=== PATIENT | female | born 1990 | race Caucasian/White ===

== ENCOUNTER → 2016-08-14 | Outpatient (CLI) | payer OTHER ==
[~2016-08-14] MED LIST: IBUPRO PO
[2016-08-14 09:47] LABS: THYROID STIMULATING HORMONE 1.16 uIu/ml (0.300-4.500)
== END | disposition home or self-care (01) ==
LOC: C.LAB 07:32
PROVIDERS: ATTEND Internal Medicine Endocrinology, Diabetes & Metabolism
DX: E03.8 Other specified hypothyroidism (principal); E06.3 Autoimmune thyroiditis

== ENCOUNTER → 2016-10-01 | Outpatient (CLI) | payer OTHER ==
[2016-10-01 09:45] LABS: BLOOD UREA NITROGEN 18 mg/dl (7-18); BUN/CREATININE RATIO 24.5 (10-20); CALCIUM 8.9 mg/dl (8.5-10.1); CARBON DIOXIDE 27 mmol/L (21-32); CHLORIDE 108 mmol/L (98-107); CREATININE 0.72 mg/dl (0.60-1.20); GLUCOSE 100 mg/dl (70-99); MAGNESIUM 2.2 mg/dl (1.8-2.4); POTASSIUM 4.1 mmol/L (3.5-5.1); SODIUM 141 mmol/L (136-145)
[2016-10-01 09:56] LABS: THYROID STIMULATING HORMONE 0.953 uIu/ml (0.300-4.500)
== END | disposition home or self-care (01) ==
LOC: C.LAB 07:43
PROVIDERS: ATTEND Internal Medicine Endocrinology, Diabetes & Metabolism
DX: E03.9 Hypothyroidism, unspecified (principal); E55.9 Vitamin D deficiency, unspecified; R53.81 Other malaise; R53.83 Other fatigue

== ENCOUNTER → 2017-01-17 | Outpatient (CLI) | payer OTHER | END | disposition home or self-care (01) | LOC: C.LAB 06:36 | PROVIDERS: ATTEND Internal Medicine Endocrinology, Diabetes & Metabolism | DX: E03.8 Other specified hypothyroidism (principal); E06.3 Autoimmune thyroiditis ==

== ENCOUNTER → 2017-04-17 | Outpatient (CLI) | payer OTHER | END | disposition home or self-care (01) | LOC: C.LAB 08:50 | PROVIDERS: ATTEND Physician Assistant | DX: E03.8 Other specified hypothyroidism (principal); E06.3 Autoimmune thyroiditis ==

== ENCOUNTER → 2017-06-05 | Outpatient (CLI) | payer OTHER ==
[2017-06-05 10:11] LABS: BASO % 0.7 %; BASO ABS # 0.03 K/uL (0-0.2); COMPLETE YES; EOS % 2.5 %; HEMATOCRIT 44.8 % (37-47); IG% 0.2 %; LYMPH % 39.3 %; LYMPH ABS # 1.73 K/uL (1.2-3.4); MEAN CELL VOLUME 90.7 fL (80-100); MEAN CORPUSCULAR HEMOGLOBIN 31.4 pg (25-34); MEAN CORPUSCULAR HGB CONC 34.6 g/dl (32-36); MEAN PLATELET VOLUME 10.4 fL (7.4-10.4); MONO % 7.7 %; NEUT % 49.6 %; PLATELET COUNT 179 K/uL (130-400); RED BLOOD COUNT 4.94 M/uL (4.2-5.4)
[2017-06-05 11:00] LABS: FERRITIN 24.6 ng/ml (8.0-388.0); THYROID STIMULATING HORMONE 0.135 uIu/ml (0.300-4.500)
== END | disposition home or self-care (01) ==
LOC: C.LAB 09:20
PROVIDERS: ATTEND Student in an Organized Health Care Education/Training Program
DX: E03.8 Other specified hypothyroidism (principal); E06.3 Autoimmune thyroiditis; Z86.39 Personal history of other endocrine, nutritional and metabolic disease

== ENCOUNTER → 2017-10-17 | Outpatient (CLI) | payer OTHER | END | disposition home or self-care (01) | LOC: C.LAB 08:25 | PROVIDERS: ATTEND Student in an Organized Health Care Education/Training Program | DX: E03.8 Other specified hypothyroidism (principal); E06.3 Autoimmune thyroiditis ==

== ENCOUNTER 2021-05-14 02:19 | Inpatient (IN) ==
[2021-05-14] MEDS ORDERED: miSOPROStoL 25 MCG TAB SL ONE (03:15)
[2021-05-14] MEDS ORDERED: OXYTOCIN 30 UNITS/500 ML BAG IV PRN ×2 (03:15→09:43)
--- NOTE | 2021-05-14 03:24 | History & Physical Report ---
Date of Service May 14, 2021 Assessment & Plan (1) 40 weeks gestation of : Plan: Admit, routine labs Start Cytotec 25 mcg sublingually every 4 hours to help with cervical ripening, epidural when patient requests, and then will start oxytocin when patient has made cervical change. 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 Was a sudden gush, has continued to leak fluid since. Clear. Denies regular painful contractions, is having some cramping, denies bleeding, baby moving well. Denies headache, blurry vision, right upper quadrant epigastric pain. States she is feeling somewhat nauseous. No other complaints at this time Start care with Seema at 8 weeks gestation. Followed by endocrinology at [facility] for her Mic's. After patient delivers plan per endocrinology is Start Tirosint 88mcg + cytomel 2.5mcg twice daily Allergies Allergy/AdvReac Type Severity Reaction Status Date / Time Penicillins Allergy Unknown Rash Verified 05/14/21 02:39 Home Medications Medication Instructions Recorded Confirmed Type levothyroxine 112 mcg capsule 112 mcg PO DAILY 05/14/21 05/14/21 History (Tirosint) vit no.95-ferrous 1 tab PO DAILY 05/14/21 05/14/21 History fumarate 28 mg-folic acid 800 mcg tablet () Past Med/Surg History Medical History (Updated 05/14/21 @ 03:36 by Rayna Vallejo MD, PhD) Mic's disease 2013 Surgical History H/O knee surgery right knee multiple surgeries [place] teeth removed 2007 Social History Smoking Status: Never smoker Second Hand Exposure: No; Hx Alcohol Use: No Hx Substance Use: No Preferred Language: Belgian Communication Ability: Effective Sccm Administrator Required: No Beliefs That Will Affect Care: None marital status: Current Living Situation: Spouse Other Information That Helps Us Care for You: No Feels Safe at Home: Yes Safety Concerns: Feels Safe At This Time Assistive Devices: Glasses Review of Systems Review of Systems: All systems reviewed & are unremarkable except as noted in HPI & below Physical Exam Constitutional: WD/WN, vitals as above Respiratory: normal respiratory effort, lungs clear to auscultation Cardiovascular: RRR, no murmur, no edema Gastrointestinal (Abdomen): normal bowel sounds, soft, nontender, no hepatosplenomegaly Gravid, Chris's 8 pounds 3 ounces Genitourinary: heart tracing: Baseline 130, moderate variability, positive accelerations, 1 variable decelerations, category 1 tracing Tocometer: Irregular contractions Cervix: 0.5/50/-3 checked by RN Results & Data Results & Data ([facility]) Vital Signs (Past 12 Hours) Vital Signs Temp Pulse Resp BP 05/14/21 03:02 37.0 C 92 H 18 119/82 05/14/21 02:45 37.0 C 88 18 144/91 H 05/14/21 02:33 88 144/91 H Code Status & VTE Plan VTE Prophylaxis Plan VTE Prophylaxis will be ordered: No
[2021-05-14 03:52] LABS: Hematocrit (blood only) 34.5 % (37-47); Hemoglobin 11.3 g/dL (12.0-16.0); Mean Corpuscular Hemoglobin 28.8 pg (25-34); Mean Corpuscular Hgb Conc 32.8 g/dL (32-36); Mean Corpuscular Volume 87.8 fL (80-100); Mean Platelet Volume 11.3 fL (7.4-10.4); Platelet Count 215 K/uL (130-400); RDW Coefficient of Variation 13.1 % (11.5-14.5); RDW Standard Deviation 42.6 fL (36.4-46.3); Red Blood Count 3.93 M/uL (4.2-5.4); White Blood Count 8.76 K/uL (4.8-10.8)
[2021-05-14] MEDS ORDERED: LEVOTHYROXINE SODIUM 112 MCG TABLET PO SCH (06:30)
--- NOTE | 2021-05-14 07:06 | Anesthesiology Consultation ---
Date of Service May 14, 2021 Assessment & Plan (1) Encounter for pre-operative examination: Chart Review Chart Review: Patient NOT seen in Pre Admission Testing and Acceptable Risk for Labor Epidural Consults Requested none History Height/Weight Height: 5 ft 3 in Weight: 91.626 kg Allergies Allergy/AdvReac Type Severity Reaction Status Date / Time Penicillins Allergy Unknown Rash Verified 05/14/21 02:39 gluten Allergy Gastrointestinal Verified 05/14/21 03:42 Upset Medications Home Medications Medication Instructions Recorded Confirmed Last Taken levothyroxine 112 mcg capsule 112 mcg PO DAILY 05/14/21 05/14/21 05/13/21 22:00 (Tirosint) vit no.95-ferrous 1 tab PO DAILY 05/14/21 05/14/21 05/13/21 09:00 fumarate 28 mg-folic acid 800 mcg tablet () Active Medications Generic Name Dose Route Start Last Admin Trade Name Freq PRN Reason Stop Dose Admin Levothyroxine Sodium 112 mcg 05/14/21 06:30 05/14/21 06:51 Levothyroxine Sodium 112 Mcg Tablet PO 06/13/21 06:29 Not Given DAILYBB [facility] Past Medical History Medical History Mic's disease 2014 Past Surgical History Surgical History H/O knee surgery right knee multiple surgeries [place] teeth removed 2007 Social History Smoking Status: Never smoker Hx Alcohol Use: No Hx Substance Use: No substance use type: does not use Physical Exam Vital Signs Last Vital Signs Temp 98.1 F 05/14/21 05:00 Pulse 92 H 05/14/21 03:02 Resp 18 05/14/21 05:00 BP 119/82 05/14/21 03:02 Testing Laboratory Results 05/14/21 03:36 Blood Type O Positive 05/14/21 03:36 Antibody Screen NEGATIVE 05/14/21 03:36
[2021-05-14] MEDS ORDERED: ONDANSETRON 4 MG OD TAB PO STA (07:43)
[2021-05-14] MEDS ORDERED: ONDANSETRON INJ 2 MG/ML 2 ML VIAL ONE ×2 (07:45→16:26)
[2021-05-14] MEDS: LACTATED RINGER'S 1,000 ML IV PRN ×3 (08:01→14:08)
[2021-05-14] MEDS ORDERED: SODIUM CHLORIDE 0.9% INJ 10 ML VIAL ONE (08:03)
[2021-05-14] MEDS ORDERED: BUPIVACAINE 0.25% 30 ML VIAL ONE (08:03)
[2021-05-14] MEDS ORDERED: ePHEDrine sulfate 50 MG/ML AMP ONE (08:03)
[2021-05-14] MEDS ORDERED: fentaNYL citrate 100 MCG/2 ML VIAL ONE (08:04)
[2021-05-14] MEDS ORDERED: fentaNYL 2MCG/ML ROPIVACAINE 1.25MG/ML 100 ML BAG EPI ONE (08:04)
[2021-05-14] MEDS ORDERED: diphenhydrAMINE 50 MG/ML VIAL IV PRN ×3 (08:07→17:00)
[2021-05-14] MEDS ORDERED: ePHEDrine sulfate 50 MG/ML AMP IV PRN ×2 (08:07→17:00)
[2021-05-14] MEDS ORDERED: NALOXONE HCL 0.4 MG/1 ML VIAL/CARP IV PRN ×2 (08:07→17:00)
[2021-05-14] MEDS ORDERED: NALBUPHINE HCL INJ 10 MG/ML AMP IV PRN ×2 (08:07→17:00)
[2021-05-14] MEDS ORDERED: fentaNYL 2MCG/ML ROPIVACAINE 1.25MG/ML 100 ML BAG EPI PRN (08:07)
[2021-05-14] MEDS ORDERED: NALOXONE HCL 1 MG in SODIUM CHLORIDE 0.9% 1000ML 1,000 ML IV PRN ×2 (08:07→17:00)
--- NOTE | 2021-05-14 10:28 | Labor Progress Brief Note ---
Date of Service May 14, 2021 Subjective Patient comfortable on epidural at this time, no complaints Assessment & Plan (1) 40 weeks gestation of : Plan: Patient changed to 3 cm dilated after her first dose of Cytotec. We will start oxytocin at this time for augmentation. 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, and transition to Tirosint 88mcg + cytomel 2.5mcg twice daily per [facility] [place] Admission and Anticipated Discharge Date Admission Date: May 14, 2021 Physical Exam Constitutional: WD/WN, vitals as above Respiratory: normal respiratory effort, lungs clear to auscultation Cardiovascular: RRR, no murmur, no edema Gastrointestinal (Abdomen): normal bowel sounds, soft, nontender, no hepatosplenomegaly Genitourinary: heart tracing: Baseline 130, moderate variability, positive accelerations no decelerations, category 1 tracing Tocometer: Contractions every 6 to 8 minutes Cervix: 3/90/-2 IUPC was placed, will start oxytocin to an increase in increments of 2 Results & Data ([place]) Vital Signs (Past 12 Hours) Vital Signs Temp Pulse Resp BP Pulse Ox 05/14/21 10:24 115 H 98 05/14/21 10:20 84 116/68 05/14/21 10:19 83 97 05/14/21 10:14 80 96 05/14/21 10:09 97 H 97 05/14/21 10:05 96 H 137/87 05/14/21 10:04 95 H 98 05/14/21 09:59 89 98 05/14/21 09:54 84 99 05/14/21 09:50 84 108/71 05/14/21 09:49 84 99 05/14/21 09:44 84 99 05/14/21 09:39 80 99 05/14/21 09:35 73 18 109/70 05/14/21 09:34 87 100 05/14/21 09:29 79 100 05/14/21 09:24 76 100 05/14/21 09:20 77 18 109/70 05/14/21 09:19 81 100 05/14/21 09:14 80 99 05/14/21 09:09 85 100 05/14/21 09:05 84 20 128/71 05/14/21 09:04 87 100 05/14/21 08:59 80 110/72 99 05/14/21 08:55 83 129/76 05/14/21 08:54 90 99 05/14/21 08:49 78 18 130/80 100 05/14/21 08:44 83 18 145/95 H 97 05/14/21 08:42 86 18 139/91 05/14/21 08:40 104 H 18 156/91 H 05/14/21 08:39 101 H 96 05/14/21 08:38 85 18 137/88 05/14/21 08:36 103 H 18 139/98 05/14/21 08:34 86 18 142/96 H 97 05/14/21 08:32 88 18 142/95 H 05/14/21 08:30 36.6 C 89 16 143/95 H 93 05/14/21 08:29 90 96 05/14/21 08:28 85 130/86 05/14/21 08:26 108 H 122/82 05/14/21 08:24 98 H 126/82 97 05/14/21 08:22 94 H 129/89 05/14/21 08:20 107 H 91 05/14/21 08:19 94 H 97 05/14/21 08:17 106 H 18 117/80 05/14/21 08:14 101 H 97 05/14/21 07:28 104 H 135/73 05/14/21 07:20 36.7 C 18 05/14/21 05:00 36.7 C 18 05/14/21 03:02 37.0 C 92 H 18 119/82 05/14/21 02:45 37.0 C 88 18 144/91 H 05/14/21 02:33 88 144/91 H
--- NOTE | 2021-05-14 13:58 | Labor Progress Brief Note ---
Date of Service May 14, 2021 Subjective Patient comfortable on epidural at this time, no complaints Assessment & Plan (1) 40 weeks gestation of : Plan: Continue oxytocin for augmentation. Anticipate spontaneous vaginal delivery (2) Class II obesity: (3) SROM (spontaneous rupture of membranes): Plan: GBS negative, no indication for antibiotics at this time, see above plan (4) Mic's disease: Plan: Continue 112 mcg daily, and transition to Tirosint 88mcg + cytomel 2.5mcg twice daily per [facility] endocrinology Admission and Anticipated Discharge Date Admission Date: May 14, 2021 Physical Exam Genitourinary: heart tracing: Baseline 130, moderate variability, early decelerations present Tocometer: Contractions every 3 to 4 minutes, Pit currently running Cervix: 9/100/0 FSE was placed Results & Data ([facility]) Vital Signs (Past 12 Hours) Vital Signs Temp Pulse Resp BP Pulse Ox 05/14/21 13:54 104 H 97 05/14/21 13:50 93 H 110/58 L 05/14/21 13:49 95 H 94 05/14/21 13:44 97 H 95 05/14/21 13:41 94 H 94 05/14/21 13:39 102 H 95 05/14/21 13:35 100 H 115/56 L 05/14/21 13:34 103 H 95 05/14/21 13:29 102 H 96 05/14/21 13:24 85 93 05/14/21 13:21 94 H 126/80 94 05/14/21 13:19 102 H 95 05/14/21 13:16 88 94 05/14/21 13:14 88 94 05/14/21 13:09 90 94 05/14/21 13:08 109 H 94 05/14/21 13:06 91 H 127/80 05/14/21 13:04 94 H 93 05/14/21 13:01 86 94 05/14/21 12:59 85 92 05/14/21 12:56 88 93 05/14/21 12:54 91 H 95 05/14/21 12:51 90 122/78 05/14/21 12:50 86 93 05/14/21 12:49 108 H 95 05/14/21 12:45 83 94 05/14/21 12:44 85 95 05/14/21 12:39 93 H 139/85 95 05/14/21 12:38 36.5 C 91 H 18 94 05/14/21 12:34 90 95 05/14/21 12:29 102 H 94 05/14/21 12:24 94 H 94 05/14/21 12:21 92 H 132/85 94 05/14/21 12:19 95 H 96 05/14/21 12:15 90 94 05/14/21 12:14 100 H 96 05/14/21 12:09 106 H 96 05/14/21 12:07 91 H 133/89 94 05/14/21 12:04 98 H 96 05/14/21 12:00 96 H 94 05/14/21 11:59 107 H 96 05/14/21 11:54 111 H 97 05/14/21 11:51 89 94 05/14/21 11:50 90 101/58 L 05/14/21 11:49 95 H 92 05/14/21 11:44 95 H 93 05/14/21 11:42 95 H 94 05/14/21 11:39 91 H 94 05/14/21 11:36 97 H 94 05/14/21 11:35 92 H 97/60 L 05/14/21 11:34 90 95 05/14/21 11:31 107 H 94 05/14/21 11:29 88 95 05/14/21 11:24 92 H 97 05/14/21 11:20 83 102/63 05/14/21 11:19 88 97 05/14/21 11:14 98 H 97 05/14/21 11:10 94 H 94 05/14/21 11:09 93 H 95 05/14/21 11:06 93 H 18 109/59 L 05/14/21 11:04 91 H 96 05/14/21 11:01 92 H 94 05/14/21 10:59 96 H 97 05/14/21 10:54 97 H 96 05/14/21 10:51 96 H 115/77 05/14/21 10:49 95 H 96 05/14/21 10:44 92 H 96 05/14/21 10:39 99 H 96 05/14/21 10:36 36.6 C 103 H 20 122/64 05/14/21 10:34 100 H 97 05/14/21 10:29 96 H 97 05/14/21 10:24 115 H 98 05/14/21 10:20 84 116/68 05/14/21 10:19 83 97 05/14/21 10:14 80 96 05/14/21 10:09 97 H 97 05/14/21 10:05 96 H 137/87 05/14/21 10:04 95 H 98 05/14/21 09:59 89 98 05/14/21 09:54 84 99 05/14/21 09:50 84 108/71 05/14/21 09:49 84 99 05/14/21 09:44 84 99 05/14/21 09:39 80 99 05/14/21 09:35 73 18 109/70 05/14/21 09:34 87 100 05/14/21 09:29 79 100 05/14/21 09:24 76 100 05/14/21 09:20 77 18 109/70 05/14/21 09:19 81 100 05/14/21 09:14 80 99 05/14/21 09:09 85 100 05/14/21 09:05 84 20 128/71 05/14/21 09:04 87 100 05/14/21 08:59 80 110/72 99 05/14/21 08:55 83 129/76 05/14/21 08:54 90 99 05/14/21 08:49 78 18 130/80 100 05/14/21 08:44 83 18 145/95 H 97 05/14/21 08:42 86 18 139/91 05/14/21 08:40 104 H 18 156/91 H 05/14/21 08:39 101 H 96 05/14/21 08:38 85 18 137/88 05/14/21 08:36 103 H 18 139/98 05/14/21 08:34 86 18 142/96 H 97 05/14/21 08:32 88 18 142/95 H 05/14/21 08:30 36.6 C 89 16 143/95 H 93 05/14/21 08:29 90 96 05/14/21 08:28 85 130/86 05/14/21 08:26 108 H 122/82 05/14/21 08:24 98 H 126/82 97 05/14/21 08:22 94 H 129/89 05/14/21 08:20 107 H 91 05/14/21 08:19 94 H 97 05/14/21 08:17 106 H 18 117/80 05/14/21 08:14 101 H 97 05/14/21 07:28 104 H 135/73 05/14/21 07:20 36.7 C 18 05/14/21 05:00 36.7 C 18 05/14/21 03:02 37.0 C 92 H 18 119/82 05/14/21 02:45 37.0 C 88 18 144/91 H 05/14/21 02:33 88 144/91 H
[2021-05-14] MEDS ORDERED: ceFAZolin 2000MG 2,000 MG/15 ML SYR IV ONE (15:38)
[2021-05-14] MEDS ORDERED: AZITHROMYCIN 500 MG in DEXTROSE 5% 250 ML IV ONE (15:40)
[2021-05-14] MEDS ORDERED: CITRIC ACID/SODIUM CITRATE 15 ML UDC ONE (15:41)
--- NOTE | 2021-05-14 15:43 | Labor Progress Brief Note ---
Date of Service May 14, 2021 Subjective Patient comfortable on epidural at this time, no complaints Assessment & Plan (1) 40 weeks gestation of : Plan: Noted ongoing intolerance to augmentation, patient has not made any significant progress in descent. As we can no longer safely augment without recurrent late decelerations, patient was counseled for primary delivery. 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 88mcg + cytomel 2.5mcg twice daily per [facility] endocrinology Admission and Anticipated Discharge Date Admission Date: May 14, 2021 Physical Exam Genitourinary: Heart tracing: Baseline 130, moderate variability, positive accelerations, several late decelerations, persistent category 2 tracing Tocometer: Contractions every 4 to 7 minutes Cervix: 10/100/0 station Results & Data ([facility]) Vital Signs (Past 12 Hours) Vital Signs Temp Pulse Resp BP Pulse Ox 05/14/21 15:39 119 H 97 05/14/21 15:35 111 H 121/76 05/14/21 15:34 117 H 96 05/14/21 15:29 100 H 93 05/14/21 15:28 101 H 94 05/14/21 15:24 107 H 93 05/14/21 15:21 97 H 104/63 05/14/21 15:19 100 H 93 05/14/21 15:18 96 H 94 05/14/21 15:14 97 H 93 05/14/21 15:09 99 H 94 05/14/21 15:05 96 H 110/61 05/14/21 15:04 106 H 100 05/14/21 14:59 94 H 100 05/14/21 14:54 87 100 05/14/21 14:51 89 99/62 L 05/14/21 14:49 94 H 100 05/14/21 14:44 91 H 100 05/14/21 14:39 88 100 05/14/21 14:37 36.7 C 20 05/14/21 14:36 100 H 20 99/58 L 05/14/21 14:34 94 H 100 05/14/21 14:29 91 H 99 05/14/21 14:24 96 H 100 05/14/21 14:20 97 H 20 113/64 05/14/21 14:19 98 H 100 05/14/21 14:14 99 H 100 05/14/21 14:09 100 H 98 05/14/21 14:04 127 H 99 05/14/21 13:59 114 H 98 05/14/21 13:54 104 H 97 05/14/21 13:50 93 H 110/58 L 05/14/21 13:49 95 H 94 05/14/21 13:44 97 H 95 05/14/21 13:41 94 H 94 05/14/21 13:39 102 H 95 05/14/21 13:35 100 H 115/56 L 05/14/21 13:34 103 H 95 05/14/21 13:29 102 H 96 05/14/21 13:24 85 93 05/14/21 13:21 94 H 126/80 94 05/14/21 13:19 102 H 95 05/14/21 13:16 88 94 05/14/21 13:14 88 94 05/14/21 13:09 90 94 05/14/21 13:08 109 H 94 05/14/21 13:06 91 H 127/80 05/14/21 13:04 94 H 93 05/14/21 13:01 86 94 05/14/21 12:59 85 92 05/14/21 12:56 88 93 05/14/21 12:54 91 H 95 05/14/21 12:51 90 122/78 05/14/21 12:50 86 93 05/14/21 12:49 108 H 95 05/14/21 12:45 83 94 05/14/21 12:44 85 95 05/14/21 12:39 93 H 139/85 95 05/14/21 12:38 36.5 C 91 H 18 94 05/14/21 12:34 90 95 05/14/21 12:29 102 H 94 05/14/21 12:24 94 H 94 05/14/21 12:21 92 H 132/85 94 05/14/21 12:19 95 H 96 05/14/21 12:15 90 94 05/14/21 12:14 100 H 96 05/14/21 12:09 106 H 96 05/14/21 12:07 91 H 133/89 94 05/14/21 12:04 98 H 96 05/14/21 12:00 96 H 94 05/14/21 11:59 107 H 96 05/14/21 11:54 111 H 97 05/14/21 11:51 89 94 05/14/21 11:50 90 101/58 L 05/14/21 11:49 95 H 92 05/14/21 11:44 95 H 93 05/14/21 11:42 95 H 94 05/14/21 11:39 91 H 94 05/14/21 11:36 97 H 94 05/14/21 11:35 92 H 97/60 L 05/14/21 11:34 90 95 05/14/21 11:31 107 H 94 05/14/21 11:29 88 95 05/14/21 11:24 92 H 97 05/14/21 11:20 83 102/63 05/14/21 11:19 88 97 05/14/21 11:14 98 H 97 05/14/21 11:10 94 H 94 05/14/21 11:09 93 H 95 05/14/21 11:06 93 H 18 109/59 L 05/14/21 11:04 91 H 96 05/14/21 11:01 92 H 94 05/14/21 10:59 96 H 97 05/14/21 10:54 97 H 96 05/14/21 10:51 96 H 115/77 05/14/21 10:49 95 H 96 05/14/21 10:44 92 H 96 05/14/21 10:39 99 H 96 05/14/21 10:36 36.6 C 103 H 20 122/64 05/14/21 10:34 100 H 97 05/14/21 10:29 96 H 97 05/14/21 10:24 115 H 98 05/14/21 10:20 84 116/68 05/14/21 10:19 83 97 05/14/21 10:14 80 96 05/14/21 10:09 97 H 97 05/14/21 10:05 96 H 137/87 05/14/21 10:04 95 H 98 05/14/21 09:59 89 98 05/14/21 09:54 84 99 05/14/21 09:50 84 108/71 05/14/21 09:49 84 99 05/14/21 09:44 84 99 05/14/21 09:39 80 99 05/14/21 09:35 73 18 109/70 05/14/21 09:34 87 100 05/14/21 09:29 79 100 05/14/21 09:24 76 100 05/14/21 09:20 77 18 109/70 05/14/21 09:19 81 100 05/14/21 09:14 80 99 05/14/21 09:09 85 100 05/14/21 09:05 84 20 128/71 05/14/21 09:04 87 100 05/14/21 08:59 80 110/72 99 05/14/21 08:55 83 129/76 05/14/21 08:54 90 99 05/14/21 08:49 78 18 130/80 100 05/14/21 08:44 83 18 145/95 H 97 05/14/21 08:42 86 18 139/91 05/14/21 08:40 104 H 18 156/91 H 05/14/21 08:39 101 H 96 05/14/21 08:38 85 18 137/88 05/14/21 08:36 103 H 18 139/98 05/14/21 08:34 86 18 142/96 H 97 05/14/21 08:32 88 18 142/95 H 05/14/21 08:30 36.6 C 89 16 143/95 H 93 05/14/21 08:29 90 96 05/14/21 08:28 85 130/86 05/14/21 08:26 108 H 122/82 05/14/21 08:24 98 H 126/82 97 05/14/21 08:22 94 H 129/89 05/14/21 08:20 107 H 91 05/14/21 08:19 94 H 97 05/14/21 08:17 106 H 18 117/80 05/14/21 08:14 101 H 97 05/14/21 07:28 104 H 135/73 05/14/21 07:20 36.7 C 18 05/14/21 05:00 36.7 C 18
--- NOTE | 2021-05-14 15:47 | Discharge Summary ---
Date of Service May 14, 2021 Admission HPI Per Admitting Provider Patient is a 31-year-old G1, P0 at 40 weeks and 3 days dated by last menstrual period consistent with a 8-week ultrasound who presents for spontaneous rupture of membranes around 1:30 AM. Was a sudden gush, has continued to leak fluid since. Clear. Denies regular painful contractions, is having some cramping, denies bleeding, baby moving well. Denies headache, blurry vision, right upper quadrant epigastric pain. States she is feeling somewhat nauseous. No other complaints at this time Start care with Seema at 8 weeks gestation. Followed by endocrinology at [facility] for her Mic's. After patient delivers plan per endocrinology is Start Tirosint 88mcg + cytomel 2.5mcg twice daily Admission Exam (Per Admitting) Constitutional WD/WN, vitals as above Cardiovascular RRR, no murmur, no edema Gastrointestinal (Abdomen) normal bowel sounds, soft, nontender, no hepatosplenomegaly Discharge Data Consultations 05/14/21 03:18 Consult Anesthesiology Stat Procedures Performed Operation Date: 05/14/21 16:00 <No data on this case meets the specified criteria> Hospital Course (1) 40 weeks gestation of : Noted ongoing intolerance to augmentation, patient has not made any significant progress in descent. As we can no longer safely augment without recurrent late decelerations, patient was counseled for primary delivery. Please see operative report for counseling note (2) Class II obesity: (3) SROM (spontaneous rupture of membranes): GBS negative, no indication for antibiotics at this time, see above plan (4) Mic's disease: transition to Tirosint 88mcg + cytomel 2.5mcg twice daily per [facility] endocrinology
[2021-05-14] MEDS ORDERED: LIDOCAINE 2% 20 MG/ML 5 ML SYR IV ONE (16:26)
[2021-05-14] MEDS ORDERED: MoRPHine SULFATE PF 1 MG/ML 10 ML AMP/VIAL ONE (16:26)
[2021-05-14] MEDS ORDERED: LIDOCAINE 2%/EPINEPHRINE 1:200,000 20 ML SDV ONE (16:26)
[2021-05-14] MEDS ORDERED: ONDANSETRON INJ 2 MG/ML 2 ML VIAL IV PRN (16:51)
[2021-05-14] MEDS ORDERED: KETOROLAC 30 MG/ML VIAL IV PRN (16:51)
[2021-05-14] MEDS ORDERED: HYDROCORTISONE ACETATE 25 MG SUPP PR PRN (16:51)
[2021-05-14] MEDS ORDERED: SENNA 8.6 MG TAB PO PRN (16:51)
[2021-05-14] MEDS ORDERED: diphenhydrAMINE Capsule 25 MG CAP PO PRN (16:51)
[2021-05-14] MEDS ORDERED: MAGNESIUM HYDROXIDE SUSP 30 ML UDC PO PRN (16:51)
[2021-05-14] MEDS ORDERED: SUPERCREAM 0.870% 15 GM JAR EXT PRN (16:51)
[2021-05-14] MEDS ORDERED: BENZOCAINE 20% AER SPR 82.5 GM CAN EXT PRN (16:51)
[2021-05-14] MEDS ORDERED: DIPHTHERIA/TETANUS/PERTUSSIS 0.5 ML SYR/VIAL IM ONE (16:51)
[2021-05-14] MEDS ORDERED: PROMETHAZINE HCL 25 MG in SODIUM CHLORIDE 0.9% 50 ML IV PRN (16:51)
--- NOTE | 2021-05-14 16:51 | Post Operative Brief Note ---
Immediate Post Op Note v1 Date of Surgery May 14, 2021 Pre & Post Diagnosis Operation Date: 05/14/21 16:00 Pre-Op Diagnosis: 1. 31 year old at 40 3/7 weeks 2. intolerance to labor. 3. Arrest of descent. 4. Prolonged rupture of membranes. 5. Class II obesity 6. Hypothyroidism Post-Op Diagnosis: Same as above and delivered I identified the patient and participated in the time-out.: Yes Procedure Operation Date: 05/14/21 16:00 Actual Procedures p Section in LD delivery of live female child at 1623(Bilateral) - Rayna Vallejo MD, PhD Surgeon Rayna Vallejo MD, PhD Line Dancer Roxanna Christianson RN, [facility] Estimated Blood Loss 800 Findings Consistent with Post-Op Diagnosis Liveborn female at 1623, weight 3177g, APGARs 9/9 Normal appearing uterus, bilateral Fallopian tubes and ovaries at time of surgery Fluids 500 mls Drains Bloom Catheter (placed in labor) Anesthesia Type Labor Epidural Complications None Disposition Accompanied Patient To Recovery: Yes
--- NOTE | 2021-05-14 16:51 | Operative Report ---
Post Operative Report Pre & Post Diagnosis Operation Date: 05/14/21 16:00 Pre-Op Diagnosis: 1. 31 year old at 40 3/7 weeks 2. intolerance to labor. 3. Arrest of descent. 4. Prolonged rupture of membranes. 5. Class II obesity 6. Hypothyrodisim Post-Op Diagnosis: Same as above. I identified the patient and participated in the time-out.: Yes Procedure Operation Date: 05/14/21 16:00 Actual Procedures Primary Lower transverse Section in delivery of live female child at 1623(Bilateral) - Rayna Vallejo MD, PhD Surgeon Rayna Vallejo MD, PhD Emergency Operator Roxanna Christianson RN, [facility] technical administrative assistant Estimated Blood Loss 800 Findings Consistent with Post-Op Diagnosis A liveborn female at 1623, weight 3177g (7 lbs 0 oz), APGARs 9/9 Intact placenta, 3 vessel cord. Cord pH pending Normal appearing uterus, bilateral Fallopian tubes and ovaries seen at time of surgery Fluids 500 mls Specimens Placenta (hold) Cord gas Drains Bloom Anesthesia Type Labor Epidural Complications None Disposition Accompanied Patient To Recovery: Yes Description of Procedure CD Delivery Note History synopsis: She is a 31-year-old G1, P0 at 40 weeks and 3 days who presented early this morning with spontaneous rupture of membranes at 1:30 AM. On admission she was 0.5 cm dilated Labor Course: Patient received 1 dose of measle possible 25 mcg sublingually, changed to 3 cm dilated and received an epidural for pain control. On next exam she was noted to be 4 cm dilated, IUPC was placed and patient was started on oxytocin for augmentation. On next exam patient was 9 cm dilated. I had a FSE was placed. Then there was noted to be a prolonged deceleration and oxytocin was turned off. Noted good recovery, when oxytocin was later turned on patient was 10 cm dilated at 0 station. There was noted to be several recurrent late decelerations and the decision was made that patient and fetus would benefit from a primary due to intolerance of labor and failure to descend. Procedure Summary: section was recommended. Risks, benefits and alternatives were discussed including but not limited to infection, bleeding that may require blood products or hysterectomy for life saving measures, injury to surrounding organs including but not limited to bowel, bladder, ureters, tubes and ovaries and/or the baby. Should injury occur it could require longer/additional surgery to repair. Patient was also counselled about risk of DVT/PE, and injury to infant during delivery. The patient stated understanding and desired to proceed. All questions were answered posed by patient. Prior to being taken to the OR, 2 grams of cefazolin IV 500 mg of azithromycin was administered. The patient was taken to the operating room where regional anesthesia was found to be adequate. Prior to monitors being removed FHR was 125 bpm with no decelerations. She was then prepared and draped in the usual sterile fashion in the dorsal supine position with a leftward tilt displacing the uterus. Bloom was draining to gravity. SCDs were on bilateral lower ex tremities. A pfannenstiel skin incision was then made with the scalpel and carried through to the underlying layer of fascia. The fascia was incised in the midline and the incision extended laterally with the Diallo scissors. The superior aspect of the facial incision was then grasped with the Holland clamps, elevated and the underlying rectus muscles dissected off bluntly. Attention was then turned to the inferior aspect of this incision which in a similar fashion was grasped, elevated with the Holland clamps and the rectus muscle dissected off bluntly. The rectus muscles were in the midline. The peritoneum identified, grasped with the pick-ups and entered sharply with the Metzenbaum scissors. The peritoneal incision was then extended superiorly and inferiorly with good visualization of the bladder. The bladder blade was inserted and the vesicouterine peritoneum was identified, grasped with the pick-ups, and entered sharply with Metzenbaum scissors. This incision was then extended laterally and the bladder flap created digitally and the bladder blade was reinserted. The lower uterine segment was identified and incised in a transverse fashion with the scalpel. The uterine incision was then extended bluntly laterally. Artificial rupture of membranes demonstrated clear fluid. The bladder blade was removed. The fetus was in presentation. The 's head delivered a traumatically. The anterior shoulders were delivered followed by the posterior shoulders then the remainder of the body. The 's mouth and nose were bulb suctioned. The umbilical cord was clamped times two and cut. The infant was handed off to the awaiting pediatric staff. A female infant was delivered weighing 3177 g with APGARS of 9 at 1 minute and 9 at 5 minutes. The infant was taken to the recovery room for transition. Cord blood gases were obtained. The placenta was removed with manual removal. 30 units of oxytocin were added to IVF and allowed to run freely. The uterus was exteriorized and cleared of all clots and debris. The uterine incision was inspected and found to be without any extensions and was repaired with 0 Vicryl in a running, locked fashion. A second imbricating layer was performed. Upon inspection, the repaired hysterotomy was found to be hemostatic. The uterus was firm and returned to the abdomen. The gutters were cleared of all clots and debris. The peritoneum was closed with 2-0 Vicryl in a running fashion. The fascia was reapproximated with 0 Vicryl in a running fashion. The subcutaneous layer was closed with 2-0 Vicryl in a running fashion. The skin was closed in a subcuticular fashion with 4-0 vicryl. Dermabond and pressure bandage was applied over incision. The patient tolerated the procedure well. Sponge, lap and needle counts were correct x4. The patient was taken to the recovery room in stable condition. I attest to the content of the Intraoperative Record and any orders documented therein. Any exceptions are noted below.
[2021-05-14] MEDS ORDERED: LACTATED RINGER'S 1,000 ML IV SCH (17:00)
[2021-05-14] MEDS ORDERED: SODIUM CHLORIDE 0.9% 1000ML 1,000 ML IV SCH (17:00)
[2021-05-14] MEDS ORDERED: LACTATED RINGER'S 1,000 ML IV PRN (17:00)
[2021-05-14] MEDS ORDERED: HYDROmorphone INJ 0.5 MG/0.5 ML SYR IV PRN (17:00)
[2021-05-14 17:43] LABS: Base Excess Cord Venous Blood -3.3 mEq/L (-7.7-1.9); CO2 Cord Arterial Blood 58 mmHg (39.1-73.5); Cord Venous Blood HCO3 23 mmol/L (18.4-26.8); Cord Venous Blood PCO2 46 mmHg (30.4-57.2); Cord Venous Blood PO2 59 mmHg (14.1-43.3); Cord Venous Blood pH 7.32 (7.20-7.44); HCO3 Cord Arterial Blood 25 mmol/L (19.7-28.5); O2 Saturation Cord Venous Bld < 60.0 % (<68); Oxygen Sat Cord Arterial Blood < 60.0 % (<60); PO2 Cord Arterial Blood 22 mmHg (4.1-31.7); pH Cord Arterial Blood 7.25 (7.1-7.38)
[2021-05-14] MEDS: SIMETHICONE 80 MG CHEW PO SCH ×2 (18:05→21:07)
--- NOTE | 2021-05-14 18:57 | Anesthesia Procedure Note ---
Date of Service May 14, 2021 Anesthesia Post Epidural Note Vital Signs Vital Signs: Temp Pulse Resp BP Pulse Ox 98.1 F 100 H 18 118/71 100 05/14/21 18:30 05/14/21 18:53 05/14/21 18:30 05/14/21 18:52 05/14/21 18:53 Pain Intensity Bilateral Abdomen: Pain Intensity: 2 Notes Mental Status: alert / awake / arousable and participated in evaluation Nausea / Vomiting: adequately controlled Pain: adequately controlled Airway Patency, RR, SpO2: stable & adequate BP & HR: stable & adequate Hydration State: stable & adequate Neuraxial Anesthesia: was administered and sensory block is resolving Anesthetic Complications: no major complications apparent and Pt Satisfied with anesthetic care Epidural: Removed without complications and With tip intact
[2021-05-14] MEDS ORDERED: LIOTHYRONINE SODIUM 25 MCG TAB PO SCH ×2 (21:00)
[2021-05-14] MEDS: DOCUSATE SODIUM 100 MG CAP PO SCH (21:07)
[2021-05-14] MEDS: LIOTHYRONINE SODIUM 5 MCG TAB PO SCH (21:07)
[2021-05-14] MEDS ORDERED: LEVOTHYROXINE SODIUM 88 MCG TABLET PO SCH (22:00)
[2021-05-14] MEDS: LEVOTHYROXINE SODIUM 88 MCG TABLET PO SCH (22:39)
[2021-05-14] MEDS: OXYTOCIN 20 UNITS in LACTATED RINGER'S 1,000 ML IV SCH (23:09)
[2021-05-15] MEDS ORDERED: LACTATED RINGER'S 1,000 ML IV ONE (03:33)
[2021-05-15 03:58] LABS: Eosinophils # (auto) 0.01 K/uL (0-0.5); Eosinophils % (auto) 0.1 %; Hematocrit (blood only) 26.5 % (37-47); Hemoglobin 8.8 g/dL (12.0-16.0); Immature Granulocytes # (auto) 0.03 K/uL (0.00-0.02); Immature Granulocytes % (auto) 0.3 %; Lymphocytes # (auto) 0.81 K/uL (1.2-3.4); Lymphocytes % (auto) 6.9 %; Mean Corpuscular Hemoglobin 29.6 pg (25-34); Mean Corpuscular Volume 89.2 fL (80-100); Mean Platelet Volume 10.6 fL (7.4-10.4); Monocytes # (auto) 0.72 K/uL (0.11-0.59); Monocytes % (auto) 6.1 %; Neutrophils % (auto) 86.6 %; Platelet Count 141 K/uL (130-400); RDW Coefficient of Variation 13.4 % (11.5-14.5); RDW Standard Deviation 43.4 fL (36.4-46.3); Red Blood Count 2.97 M/uL (4.2-5.4); White Blood Count 11.77 K/uL (4.8-10.8)
[2021-05-15 04:23] LABS: Mean Corpuscular Hgb Conc 33.2 g/dL (32-36)
[2021-05-15] MEDS ORDERED: FERROUS SULFATE 325 MG TAB PO SCH (08:00)
[2021-05-15] MEDS: DOCUSATE SODIUM 100 MG CAP PO SCH ×2 (08:29→20:13)
[2021-05-15] MEDS: SIMETHICONE 80 MG CHEW PO SCH ×4 (08:30→20:13)
[2021-05-15] MEDS: PRENATAL VITAMIN 1 TAB PO SCH (08:30)
[2021-05-15] MEDS: LIOTHYRONINE SODIUM 5 MCG TAB PO SCH ×2 (08:31→20:14)
[2021-05-15] MEDS: OXYTOCIN 20 UNITS in LACTATED RINGER'S 1,000 ML IV SCH (08:54)
[2021-05-15] MEDS ORDERED: DC INTRASPINAL MORPHINE SCH (10:28)
[2021-05-15] MEDS: oxyCODONE/ACETAMINOPHEN 5mg/325mg TAB PO PRN ×2 (11:21→18:15)
[2021-05-15] MEDS: IBUPROFEN 600 MG TAB PO PRN ×2 (11:21→18:15)
--- NOTE | 2021-05-15 11:28 | Obstetrical Progress Note ---
Date of Service May 15, 2021 Subjective Ambulation: ambulating normally Voiding: no voiding problems Passing Gas:: Yes Diet Tolerance:: regular diet Lochia:: Small Feeding Type:: breast feeding Current Pain Level(1-10): 0 doing well no SOB or dizziness when getting OOB Physical Exam Constitutional WD/WN, vitals as above comfortable abdomen soft and non-tender incision c/d/i no edema neg Oliver's will repeat CBC in AM Results & Data ([facility]) Vital Signs (Past 12 Hours) Vital Signs Temp Pulse Pulse Resp BP BP Pulse Ox 05/15/21 09:02 18 97 05/15/21 08:58 18 98 05/15/21 08:30 18 97 05/15/21 07:22 36.9 C 101 H 18 102/70 96 05/15/21 06:10 16 95 05/15/21 05:10 16 92 05/15/21 04:00 18 96 05/15/21 03:15 37.7 C H 130 H 16 94/57 L 96 05/15/21 02:10 16 96 05/15/21 01:10 18 96 05/15/21 00:15 18 93 Pulse Ox 05/15/21 09:02 05/15/21 08:58 05/15/21 08:30 05/15/21 07:22 96 05/15/21 06:10 05/15/21 05:10 05/15/21 04:00 05/15/21 03:15 05/15/21 02:10 05/15/21 01:10 05/15/21 00:15
[2021-05-15] MEDS ORDERED: bisacodyL 5 MG TABEC PO SCH (20:00)
[2021-05-15] MEDS: LEVOTHYROXINE SODIUM 88 MCG TABLET PO SCH (21:14)
[2021-05-16] MEDS: IBUPROFEN 600 MG TAB PO PRN ×3 (00:43→17:24)
[2021-05-16 06:18] LABS: Hemoglobin 8.1 g/dL (12.0-16.0); Mean Corpuscular Hemoglobin 29.2 pg (25-34); Mean Corpuscular Hgb Conc 32.4 g/dL (32-36); Mean Corpuscular Volume 90.3 fL (80-100); Mean Platelet Volume 10.4 fL (7.4-10.4); Platelet Count 168 K/uL (130-400); RDW Coefficient of Variation 13.7 % (11.5-14.5); RDW Standard Deviation 45.6 fL (36.4-46.3); Red Blood Count 2.77 M/uL (4.2-5.4); White Blood Count 8.27 K/uL (4.8-10.8)
--- NOTE | 2021-05-16 08:03 | Obstetrical Progress Note ---
Date of Service May 16, 2021 Assessment & Plan Admission and Anticipated Discharge Date Admission Date: May 14, 2021 Subjective Patient is seen and examined. She feels well, no complaints. Pain is under control with oral meds. Ambulating without dizziness Voiding without difficulty Tolerating regular diet with out N&V Flatus + BM NEG Bleeding is minimal No fever/ chills/ CP/ SOB/ N&V/ Leg pain Breast feeding without problems Vital Signs Temp Pulse Resp BP Pulse Ox 05/15/21 23:05 36.9 C 92 H 16 105/97 98 Vital Signs Temp Pulse Resp BP Pulse Ox 05/15/21 23:05 36.9 C 92 H 16 105/97 98 05/15/21 19:30 36.8 C 101 H 16 120/85 97 05/15/21 16:00 36.4 C L 91 H 16 103/72 98 05/15/21 12:21 36.5 C 93 H 18 119/77 96 05/15/21 10:41 18 97 05/15/21 09:02 18 97 05/15/21 08:58 18 98 05/15/21 08:30 18 97 Lab Results 05/14/21 05/14/21 05/14/21 Range/Units 03:30 03:36 03:36 WBC 8.76 (4.8-10.8) K/uL RBC 3.93 L (4.2-5.4) M/uL Hgb 11.3 L (12.0-16.0) g/dL Hct 34.5 L (37-47) % MCV 87.8 (80-100) fL MCH 28.8 (25-34) pg MCHC 32.8 (32-36) g/dL RDW Std Deviation 42.6 (36.4-46.3) fL RDW Coeff of Reji 13.1 (11.5-14.5) % Plt Count 215 (130-400) K/uL MPV 11.3 H (7.4-10.4) fL Immature Gran % (Auto) % Neut % (Auto) % Lymph % (Auto) % [place] % (Auto) % Eos % (Auto) % Baso % (Auto) % Neut # (Auto) (1.4-6.5) K/uL Lymph # (Auto) (1.2-3.4) K/uL Apache # (Auto) (0.11-0.59) K/uL Eos # (Auto) (0-0.5) K/uL Baso # (Auto) (0-0.2) K/uL Immature Gran # (Auto) (0.00-0.02) K/uL Cord ABG pH (7.1-7.38) Cord ABG pCO2 (39.1-73.5) mmHg Cord ABG pO2 (4.1-31.7) mmHg Cord ABG HCO3 (19.7-28.5) mmol/L Cord ABG Base Excess (-9-1.8) mEq/L Cord ABG O2 Sat (<60) % Cord VBG pH (7.20-7.44) Cord VBG pCO2 (30.4-57.2) mmHg Cord VBG pO2 (14.1-43.3) mmHg Cord VBG HCO3 (18.4-26.8) mmol/L Cord VBG Base Excess (-7.7-1.9) mEq/L Cord VBG O2 Sat (<68) % Barometric Pressure mm/Hg Blood Gas Comments SARS-CoV-2, RNA, NAAT NEGATIVE (NEGATIVE) Blood Type O Positive Antibody Screen NEGATIVE 05/14/21 05/14/21 05/15/21 Range/Units 16:30 16:30 03:45 WBC 11.77 H (4.8-10.8) K/uL RBC 2.97 L (4.2-5.4) M/uL Hgb 8.8 L (12.0-16.0) g/dL Hct 26.5 L (37-47) % MCV 89.2 (80-100) fL MCH 29.6 (25-34) pg MCHC 33.2 (32-36) g/dL RDW Std Deviation 43.4 (36.4-46.3) fL RDW Coeff of Reji 13.4 (11.5-14.5) % Plt Count 141 (130-400) K/uL MPV 10.6 H (7.4-10.4) fL Immature Gran % (Auto) 0.3 % Neut % (Auto) 86.6 % Lymph % (Auto) 6.9 % [place] % (Auto) 6.1 % Eos % (Auto) 0.1 % Baso % (Auto) 0.0 % Neut # (Auto) 10.20 H (1.4-6.5) K/uL Lymph # (Auto) 0.81 L (1.2-3.4) K/uL [place] # (Auto) 0.72 H (0.11-0.59) K/uL Eos # (Auto) 0.01 (0-0.5) K/uL Baso # (Auto) 0.00 (0-0.2) K/uL Immature Gran # (Auto) 0.03 H (0.00-0.02) K/uL Cord ABG pH 7.25 (7.1-7.38) Cord ABG pCO2 58 (39.1-73.5) mmHg Cord ABG pO2 22 (4.1-31.7) mmHg Cord ABG HCO3 25 (19.7-28.5) mmol/L Cord ABG Base Excess -4.0 (-9-1.8) mEq/L Cord ABG O2 Sat < 60.0 (<60) % Cord VBG pH 7.32 (7.20-7.44) Cord VBG pCO2 46 (30.4-57.2) mmHg Cord VBG pO2 59 H (14.1-43.3) mmHg Cord VBG HCO3 23 (18.4-26.8) mmol/L Cord VBG Base Excess -3.3 (-7.7-1.9) mEq/L Cord VBG O2 Sat < 60.0 (<68) % Barometric Pressure 732.3 732.0 mm/Hg Blood Gas Comments PRESTON PRESTON SARS-CoV-2, RNA, NAAT (NEGATIVE) Blood Type Antibody Screen 05/16/21 Range/Units 05:58 WBC 8.27 (4.8-10.8) K/uL RBC 2.77 L (4.2-5.4) M/uL Hgb 8.1 L (12.0-16.0) g/dL Hct 25.0 L (37-47) % MCV 90.3 (80-100) fL MCH 29.2 (25-34) pg MCHC 32.4 (32-36) g/dL RDW Std Deviation 45.6 (36.4-46.3) fL RDW Coeff of Reji 13.7 (11.5-14.5) % Plt Count 168 (130-400) K/uL MPV 10.4 (7.4-10.4) fL Immature Gran % (Auto) % Neut % (Auto) % Lymph % (Auto) % [place] % (Auto) % Eos % (Auto) % Baso % (Auto) % Neut # (Auto) (1.4-6.5) K/uL Lymph # (Auto) (1.2-3.4) K/uL [place] # (Auto) (0.11-0.59) K/uL Eos # (Auto) (0-0.5) K/uL Baso # (Auto) (0-0.2) K/uL Immature Gran # (Auto) (0.00-0.02) K/uL Cord ABG pH (7.1-7.38) Cord ABG pCO2 (39.1-73.5) mmHg Cord ABG pO2 (4.1-31.7) mmHg Cord ABG HCO3 (19.7-28.5) mmol/L Cord ABG Base Excess (-9-1.8) mEq/L Cord ABG O2 Sat (<60) % Cord VBG pH (7.20-7.44) Cord VBG pCO2 (30.4-57.2) mmHg Cord VBG pO2 (14.1-43.3) mmHg Cord VBG HCO3 (18.4-26.8) mmol/L Cord VBG Base Excess (-7.7-1.9) mEq/L Cord VBG O2 Sat (<68) % Barometric Pressure mm/Hg Blood Gas Comments SARS-CoV-2, RNA, NAAT (NEGATIVE) Blood Type Antibody Screen PE: General: Alert, orientedx3, NAD CVS: S1S2 RRR Lungs; CTAB Abd: soft, NT, ND, BS+, fundus firm, below Umbilicus Incision: Clean, dry, intact Perineum intact, Lochia rubra minimal Ext; NT, no edema, Homans sing neg/neg AP: 31 yo s/p Primary C Section, pod# 2 VSS Afebrile doing well Continue routine postop care Encourage ambulation, PO intake All questions were answered Desires d/c this afternoon Discussed when to call D/C home , f/u in office Results & Data ([facility]) Vital Signs (Past 12 Hours) Vital Signs Temp Pulse Resp BP Pulse Ox 05/15/21 23:05 36.9 C 92 H 16 105/97 98
[2021-05-16] MEDS: SIMETHICONE 80 MG CHEW PO SCH ×3 (08:06→17:24)
[2021-05-16] MEDS: DOCUSATE SODIUM 100 MG CAP PO SCH (08:07)
[2021-05-16] MEDS: PRENATAL VITAMIN 1 TAB PO SCH (08:08)
[2021-05-16] MEDS: oxyCODONE/ACETAMINOPHEN 5mg/325mg TAB PO PRN ×2 (08:09→17:24)
[2021-05-16] MEDS ORDERED: FERROUS SULFATE 325 MG TAB PO SCH (09:00)
[2021-05-16] MEDS: LIOTHYRONINE SODIUM 5 MCG TAB PO SCH (09:28)
[2021-05-16] MEDS ORDERED: bisacodyL 10 MG SUPP PR PRN (16:51)
== END 2021-05-16 18:00 | disposition home or self-care (01) | DRG 788 ==
LOC: OPB 02:19 → 4S1 02:24 → 4S2 19:01